=== PATIENT | female | born 1955 | race African-American/Black ===

== ENCOUNTER → 2017-07-08 | Outpatient (CLI) | payer OTHER ==
[~2017-07-08] VITALS: Ht 162.6 cm; Wt 90.7 kg
[~2017-07-08] MED LIST: ASPIRIN81 M2 PO; CARVEDILOL25 MG PO; COZAAR 50 MG TA50 M2 PO; HUMALOG100 UNIT/1 SUBQ; LANTUS SUBQ; LYRICA 50 MG50 MG PO; PERCOCET PO; PLAVIX 75 MG TA75 M1 PO; PRAVACHOL40 MG PO; PROTONIX40 M1 PO; RENA-VITE TABL0.8 MG PO; TRIAMTERENE-HC1 EAC1 PO; XANAX 0.5 MG0.5 MG PO
--- NOTE | ~2017-07-08 | HPC ---
[facility] [place] [address] PAIN MANAGEMENT CONSULTATION Name: SHERRI ODONNELL Room #: REG [facility].#: [id number] Admission: 07/08/17 Attend Phys: Macarena Quinones MD Discharge: Date of : 53 Report #: [id number] THIS REPORT FOR: //name// CC: Anthony Quinones CHIEF COMPLAINT: Left thigh pain. HISTORY OF PRESENT ILLNESS: The patient is a 62-year-old female who has been referred to the pain clinic for evaluation. The patient states that she has been experiencing pain and discomfort in her low back and pain radiating down into her legs bilaterally. She also has some pain in the waist area, around her waist. She rates her pain as a 9/10. She notes that the pain is worse getting in and out of bed. The pain has improved somewhat with use of Percocet, but still is quite problematic. She has been having pain and discomfort, which has been quite problematic since 2012. ALLERGIES: BACTRIM CAUSES SWELLING. MEDICATIONS: Xanax 0.5 mg p.r.n. restlessness, Lantus insulin 42 units subQ at bedtime, insulin Humulin, oxycodone 5/325 one p.o. p.r.n., pravastatin 40 mg daily, losartan 50 mg daily, Plavix 75 mg, pregabalin 50 mg t.i.d., Protonix 40 mg daily, Coreg 25 mg daily, triamcinolone/hydrochlorothiazide 37.5/25, folic acid, 81 mg aspirin. PAST MEDICAL HISTORY: Kidney disease, diabetes, hypertension, fibromyalgia. PAST SURGICAL HISTORY: Hysterectomy in 1997, 3 stents in the right leg and groin 2017, 1 stent in left leg and groin. SOCIAL HISTORY: She is a retired psych worker. She is not working at this juncture, stopped 4 years ago. REVIEW OF SYSTEMS: Questionnaire indicates generally good health, decreased appetite, numbness and tingling sensation in the lower extremities, left and right in the posterior portion of her leg. LABORATORY DATA: No laboratory values are available at the time of our interview. PHYSICAL EXAMINATION: Blood pressure 118/71, pulse 83, respiratory rate 16, room air saturation 98%. Height 5 feet 4 inches, weight 209 pounds, BMI is 35. The patient has pain and discomfort radiating down into her left leg in the L5-S1 dermatomal distribution with numbness, weakness and tenderness. She rates her pain as a 9/10. [address] [address] PAIN MANAGEMENT CONSULTATION Name: SHERRI ODONNELL Room #: REG [facility]#: [id number] Admission: 07/08/17 Attend Phys: Macarena Quinones MD Discharge: Date of : 53 Report #: [id number] IMPRESSION: 1. Lumbar radiculopathy bilaterally, left side greater than right. 2. Chronic anticoagulation/peripheral vascular disease with use of Plavix. 3. Hypertension. 4. Diabetes. RECOMMENDATIONS: We discussed treatment options with the patient. Risks and benefits of an epidural steroid injection were to explained to the patient. Possible complications of these procedure were discussed. The patient is on Plavix. We will consult her primary physician and see whether or not she can stop Plavix for 7 days and then undergone an epidural steroid injection. We would like to thank you for letting us participate in her care. We hope that she continues to improve. She will return to the pain clinic at which time she will undergone an epidural steroid injection should her primary deem it reasonable to stop her Plavix. By: [id number] Macarena Quinones MD /[facility]
[2017-07-08 09:57] VITALS: BP 124/77
== END | disposition home or self-care (01) ==
LOC: PAIN 07:21
DX: M54.16 Radiculopathy, lumbar region (principal); M54.5 Low back pain; Z88.8 Allergy status to other drugs, medicaments and biological substances; I12.9 Hypertensive chronic kidney disease with stage 1 through stage 4 chronic kidney disease, or unspecified chronic kidney disease; E11.22 Type 2 diabetes mellitus with diabetic chronic kidney disease; N18.9 Chronic kidney disease, unspecified; Z90.710 Acquired absence of both cervix and uterus; Z68.35 Body mass index [BMI] 35.0-35.9, adult; I73.9 Peripheral vascular disease, unspecified; Z79.899 Other long term (current) drug therapy; M79.7 Fibromyalgia

== ENCOUNTER → 2017-07-22 | Outpatient (CLI) | payer OTHER ==
[~2017-07-22] VITALS: Ht 162.6 cm; Wt 94.9 kg
--- NOTE | ~2017-07-22 | HPC ---
[facility] [place] [address] PAIN MANAGEMENT CONSULTATION Name: SHERRI ODONNELL Room #: REG [facility].#: [id number] Admission: 07/22/17 Attend Phys: Macarena Quinones MD Discharge: Date of : 53 Report #: [id number] THIS REPORT FOR: //name// CC: Anthony Quinones DATE OF SERVICE: 07/22/2017 FOLLOWUP HISTORY: The patient is a 62-year-old female who has been seen in the pain clinic because of pain and discomfort, which has been radiating down into the left leg and causing pain in her back and buttocks on both sides. Left is more problematic. She rates her pain as a 9/10. She notes walking, standing and other activities of daily living exacerbate her pain and discomfort. She would like to undergo epidural steroid injections. PHYSICAL EXAMINATION: Blood pressure is 118/71, pulse 83, respiratory rate 16, room air saturation 98%. Height 5 feet 4 inches, weight 209 pounds, BMI is 35. The patient states that she is having significant amount of difficulty with sleep because of the pain. She notes weakness in her leg. She is walking with a significant limp. She does use a cane. IMPRESSION: 1. Lumbar radiculopathy involving the left L5-S1 nerve root dermatome. 2. Diabetes, insulin dependent. 3. Hypercholesterolemia. 4. Peripheral vascular disease with stents in the right groin and left leg groin area as well. 5. Kidney disease. RECOMMENDATIONS: We discussed treatment options with the patient and her . Risks and benefits of the procedure were again reviewed. Possible complications were explained. The patient has stopped her Plavix and been off for 7 days. She is aware of possible complications, which were reviewed again which entail bleeding, infection, increased muscle soreness, headache, and nerve damage. She elects to proceed. PROCEDURE NOTE: The patient was placed in the prone position. Fluoroscopy was used to identify the left L5-S1 area. This area had been sterilely prepped with Betadine and infiltrated with 0.25% bupivacaine. Total of 80 mg Depo-Medrol, 40 mg triamcinolone and 2 mL of 0.25% bupivacaine was injected. The patient's pain decreased from 9-5 at the time of discharge. She will follow up in the future [address] [address] PAIN MANAGEMENT CONSULTATION Name: ODONNELLSHERRI Room #: REG [facility]#: [id number] Admission: 07/22/17 Attend Phys: Macarena Quinones MD Discharge: Date of : 53 Report #: [id number] as needed. We would like to thank you for letting us participate in her care. We hope she continues to improve. By: [id number] Macarena Quinones MD /PMT
[2017-07-22 09:17] VITALS: BP 118/71
== END | disposition home or self-care (01) ==
LOC: PAIN 06:55
DX: M54.16 Radiculopathy, lumbar region (principal); E11.9 Type 2 diabetes mellitus without complications; Z79.4 Long term (current) use of insulin; E78.00 Pure hypercholesterolemia, unspecified; I73.9 Peripheral vascular disease, unspecified; N28.9 Disorder of kidney and ureter, unspecified; Z68.35 Body mass index [BMI] 35.0-35.9, adult; Z87.891 Personal history of nicotine dependence